=== PATIENT | female | born 1960 | race Caucasian/White ===

== ENCOUNTER 2020-06-20 13:15 | Day surgery (SDC) | payer BC ==
[2020-06-14 14:50] LABS: BASOPHILS # (AUTO) 0.1 X10'3 (0-0.2); BASOPHILS % (AUTO) 0.8 % (0-1); EOSINOPHILS # (AUTO) 0.3 X10'3 (0-0.9); EOSINOPHILS % (AUTO) 3.6 % (0-6); LYMPHOCYTES # (AUTO) 1.5 X10'3 (1.1-4.8); LYMPHOCYTES % (AUTO) 21.6 % (21-51); MEAN CORPUSCULAR HEMOGLOBIN 28.9 PG (27.0-31.0); MEAN CORPUSCULAR HGB CONC 33.5 g/dL (33.0-36.5); MEAN CORPUSCULAR VOLUME 86.4 FL (78-98); MEAN PLATELET VOLUME 7.3 FL (7.4-10.4); MONOCYTES # (AUTO) 0.5 X10'3 (0-0.9); MONOCYTES % (AUTO) 6.8 % (2-12); NEUTROPHILS # (AUTO) 4.8 X10'3 (1.8-7.7); NEUTROPHILS % (AUTO) 67.2 % (42-75); PRE OP HEMATOCRIT 38.2 % (35.0-45.0); PRE OP HEMOGLOBIN 12.8 g/dL (12.0-16.0); PRE OP PLATELET COUNT 284 X10'3 (140-440); RED BLOOD COUNT 4.42 X10'6 (4.20-5.60); RED CELL DISTRIBUTION WIDTH 14.3 % (11.5-14.5)
[2020-06-14 15:04] LABS: ALBUMIN 3.5 G/DL (3.4-5.0); ALBUMIN/GLOBULIN RATIO 0.9 (1.1-1.5); ALKALINE PHOSPHATASE 76 IU/L (46-116); BLOOD UREA NITROGEN 13 MG/DL (7-18); BUN/CREATININE RATIO 13.8 (6.6-38.0); CHLORIDE 101 MMOL/L (99-107); CREATININE 0.94 MG/DL (0.40-0.90); PRE OP ALT 22 U/L (30-65); PRE OP ANION GAP 3 (8-16); PRE OP AST 11 U/L (10-37); PRE OP BILIRUB, TOTAL 0.2 MG/DL (0.0-1.0); PRE OP POTASSIUM 3.5 MMOL/L (3.4-5.1); PRE OP SODIUM 135 MMOL/L (135-145); TOTAL CARBON DIOXIDE 30.8 MMOL/L (24-32); TOTAL PROTEIN 7.2 G/DL (6.4-8.2); eGFR 61 ML/MIN
[2020-06-14 15:06] LABS: PRE OP GLUCOSE 355 MG/DL (70-104)
[~2020-06-20] VITALS: Ht 172.7 cm; Wt 78.9 kg
[2020-06-20] VITALS (7 sets, daily range): BP systolic 129–155; BP diastolic 71–99
[~2020-06-20 13:15] MED LIST: DULA0.75 SQ; LIDOcaine 2% (20mg/ml) 5ml vial ONE; MIDAZolam 5mg/5ml vial ONE; ceFAZolin 2gm in dextrose, iso 50 ML IV ONE; ePHEDrine 50MG/ML INJ. ONE; esmolol inj. 10 ML IV ONE; famotidine 20mg tablet PO ONE; fentaNYL /PF 50mcg/ml 5ml ampule ONE; propofol inj 20 ML IV ONE; ringers solution, lacted 1,000 ML IV SCH; rocuronium 10mg/ml inj IV ONE; vancomycin 1,500 MG in NS 300ml IV soln IV ONE
[2020-06-20] MEDS ORDERED: scopolamine 1.5mg patch.TD72 TD ONE (14:10)
[2020-06-20] MEDS ORDERED: cloNIDine hcl/PF 100mcg/ml inj ONE (16:02)
[2020-06-20] MEDS ORDERED: fentaNYL/PF 50MCG/1 ML 2ML syringe ONE (16:28)
[2020-06-20] MEDS ORDERED: LIDOcaine 2% 5ml jelly ONE (16:28)
[2020-06-20] MEDS ORDERED: propofol inj 20 ML IV ONE ×2 (17:07→18:17)
[2020-06-20] MEDS ORDERED: rocuronium 10mg/ml inj IV ONE (17:07)
[2020-06-20] MEDS ORDERED: ROPIVAcaine 0.5% (5mg/ml) 30ml vial ONE ×2 (17:07)
[2020-06-20] MEDS ORDERED: midazolam 2 mg/2 ml injection ONE (17:07)
[2020-06-20] MEDS ORDERED: ondansetron/PF 4mg/2ml inj ONE (17:07)
[2020-06-20] MEDS ORDERED: LIDOcaine 2% (20mg/ml) 5ml vial ONE (17:07)
[2020-06-20] MEDS ORDERED: dexamethasone sod phosphate 4mg/ml inj. ONE (17:07)
--- NOTE | 2020-06-20 18:35 | NUR ---
Received from OR via [facility] , accompanied by Anesthesiologist PAYAL and report given by Anesthesiolgist. PATIENT WITH 20G PIV IN RIGHT UE RUNNING LR AT 100. DENIES PAIN. VSS. RIGHT LE IN SPLINT WITH SPACER. + CAP REFILL AND TOES ARE PWD. NO DRAINAGE PRESENT. 10L MASK ON WITH 100% SATURATIONS. ACCUCHECK OF 131. Addendum: 06/20/20 at 1853 by Stuart Richardson RN, RN Amended: Links added.
[2020-06-20] MEDS ORDERED: proCHLORperazine 10 MG/2 ml inj IV PRN (18:40)
[2020-06-20] MEDS ORDERED: ringers solution, lacted 1,000 ML IV SCH (18:40)
[2020-06-20] MEDS ORDERED: acetaminophen 1,000mg/100ml IV 100 ML IV PRN (18:40)
[2020-06-20] MEDS ORDERED: morphine 2 MG/ML inj. syringe IV PRN (18:40)
[2020-06-20] MEDS ORDERED: meperidine/PF 25mg/ml syringe IV PRN ×3 (18:40)
[2020-06-20] MEDS ORDERED: morphine 4 MG/ML inj SYRINge IV PRN (18:40)
[2020-06-20] MEDS ORDERED: hydrALAZINE 20mg/ml inj. IV PRN (18:40)
[2020-06-20] MEDS ORDERED: labetalol 20mg/4ml (5mg/ml) syringe IV PRN (18:40)
[2020-06-20] MEDS ORDERED: ondansetron/PF 4mg/2ml inj IV PRN (18:40)
--- NOTE | 2020-06-20 19:15 | NUR ---
PATIENT AND FAMILY AND THEY HAVE VERBALIZED UNDERSTANDING, OPPORTUNITY TO ASK QUESTIONS GIVEN AND PATIENT COMFORTABLE WITH DC. IV TAKEN OUT WITHOUT COMPLICATION. PATIENT HAS MET ALL DC CRITERIA FOR DC HOME. I HAVE REVIEWED D/C INSTRUCTIONS WITH OUT VIA WHEELCHAIR WHERE PATIENT WAS TAKEN HOME WITH ALL BELONGINGS. FAMILY GAVE PATIENT TRANSPORT HOME. BOOT SECURED BEST POSSIBLE TO RLE. PATIENT ABLE TO TRANSFER TO WHEELCHAIR AND STAND PIVOT TO BACK SEAT OF FAMILY VEHICLE. Addendum: 06/20/20 at 1939 by Stuart Richardson RN, RN Amended: Links added.
== END 2020-06-20 19:15 | disposition home or self-care (01) ==
LOC: PAS 13:15
PROVIDERS: ATTEND Orthopaedic Surgery
DX: S86.011A Strain of right Achilles tendon, initial encounter (principal); I10 Essential (primary) hypertension; G89.18 Other acute postprocedural pain; E11.59 Type 2 diabetes mellitus with other circulatory complications; M19.071 Primary osteoarthritis, right ankle and foot; K21.9 Gastro-esophageal reflux disease without esophagitis; E66.8 Other obesity; Z68.26 Body mass index [BMI] 26.0-26.9, adult; Z20.828 Contact with and (suspected) exposure to other viral communicable diseases; Z79.899 Other long term (current) drug therapy; Z90.49 Acquired absence of other specified parts of digestive tract; Z98.890 Other specified postprocedural states; Z72.89 Other problems related to lifestyle; X58.XXXA Exposure to other specified factors, initial encounter; Y93.89 Activity, other specified; Y92.89 Other specified places as the place of occurrence of the external cause; Y99.8 Other external cause status
CPT/HCPCS: 27650; 36415; 64445; 64447; 76942; 80053; 82948; 85025; 87635; 93005; C9803; J0735; J1100; J2001; J2250; J2405; J2704; J3010; J3370; J7040; A4215; A4618; A6250; A6449; A7000; J2795; J3490; J7120